=== PATIENT | female | born 1955 | race Caucasian/White ===

== ENCOUNTER 2018-04-28 11:50 | Emergency (ER) | payer SELFPAY ==
[2018-04-28 12:38] LABS: Absolute Monocytes 1.1 K/uL (0.1-1.3); Absolute Neutrophil 8.9 K/uL (1.8-8.0); Basophils % 0.9 % (0-1.3); Eosinophils % 2.3 % (0-4.4); Hematocrit 40.1 % (36.0-45.0); Lymphocytes % 16.5 % (15.3-44.8); MPV 8.4 fL (7.6-11.3); Monocytes % 8.7 % (3.3-12.3); Protime INR 0.91
[2018-04-28] MEDS ORDERED: MORPHINE 2 MG/ML SYR ONE ×2 (12:38→15:40)
[2018-04-28] MEDS ORDERED: PANTOPRAZOLE 40 MG INJ ONE (12:38)
[2018-04-28] MEDS ORDERED: ONDANSETRON 4 MG/2 ML VIAL ONE (12:38)
[2018-04-28 12:58] LABS: Potassium 3.9 mmol/L (3.5-5.1); Sodium Level 140 mmol/L (136-145)
[2018-04-28 12:59] LABS: ALT/SGPT 23 U/L (12-78); AST/SGOT 16 U/L (15-37); Alkaline Phosphatase 85 U/L (45-117); BUN Blood Urea Nitrogen 21 mg/dL (7-18); Bicarbonate 24 mmol/L (21-32); Bilirubin Direct < 0.1 mg/dL (0-0.2); Bilirubin Total 0.3 mg/dL (0.2-1.0); Glucose Level 99 mg/dL (74-106); Lipase 226 U/L (73-393); NT PRO-BNP 45 pg/mL (<125); Protein, Total 7.5 g/dL (6.4-8.2); Troponin (Emerg Dept Use Only) < 0.02 ng/mL (0.0-0.045)
--- NOTE | 2018-04-28 13:00 | RAD REPORT ---
EXAM DESCRIPTION: Lm Single View04/28/2018 12:41 pm CLINICAL HISTORY: Chest pain COMPARISON: 2017 FINDINGS: The lungs appear clear of acute infiltrate. The heart is normal size IMPRESSION: No acute abnormalities displayed
--- NOTE | 2018-04-28 14:42 | RAD REPORT ---
EXAM DESCRIPTION: CT - Abdomen Pelvis W Contrast - 04/28/2018 2:33 pm CLINICAL HISTORY: Abdominal pain with nausea. COMPARISON: none. TECHNIQUE: Computed axial tomography of the abdomen pelvis was obtained. 100 cc Isovue-300 was admin istered intravenously. Oral contrast was not requested which limits evaluation of bowel. All CT scans are performed using dose optimization technique as appropriate and may include automated exposure control or mA/KV adjustment according to patient size. FINDINGS: The liver, spleen, pancreas, adrenal and kidneys appear unremarkable. There is no evidence of diverticulitis. The appendix is normal. Hysterectomy has been performed An adnexal mass is not visualized IMPRESSION: No acute abnormality is displayed.
--- NOTE | 2018-04-28 14:43 | RAD REPORT ---
EXAM DESCRIPTION: US - Abdomen Exam Limited - 04/28/2018 2:10 pm CLINICAL HISTORY: Abdominal pain. COMPARISON: None. FINDINGS: The gallbladder is contracted. The gallbladder wall is not thickened. A gallstone is not s een. The common bile duct measures 6 millimeters IMPRESSION: Contracted gallbladder. Otherwise unremarkable exam
[2018-04-28] MEDS ORDERED: ASPIRIN 81 MG CHEWABLE TABLET ONE (15:40)
[2018-04-28] MEDS ORDERED: NICOTINE 21 MG/PAT TD ONE (15:40)
--- NOTE | 2018-04-28 17:48 | EDPHYS ---
Physician Documentation [facility] Name: Kacy Webb Age: 62 yrs Sex: Female : 1955 Arrival Date: 04/28/2018 Time: 11:51 Bed 5 Private MD: Hank Pena T ED Physician Alex Foster HPI: 04/28 12:16 This 62 yrs old Female presents to ER via Wheelchair with complaints of Chest cp Pain, Palpitations. 12:16 The patient or guardian reports chest pain that is located primarily in the epigastric cp area, mid and lower chest bilateral. 12:16 Onset: this morning. cp 12:16 The patient presents with abdominal pain in the upper abdomen. cp 12:16 The pain radiates to jaw, bilateral axilla. Associated signs and symptoms: Pertinent cp positives: nausea, palpitations, Pertinent negatives: blood in stools, constipation, diarrhea, fever, shortness of breath, vomiting. The symptoms are described as constant. 12:16 The chest pain is described as aching. cp Historical: - Allergies: 12:12 No Known Allergies; iw - Home Meds: 12:12 citalopram 10 mg tab 1 tab once daily [Active]; Toprol XL 100 mg Oral Tb24 1 tab once iw daily [Active]; Alprazolam Oral as needed [Active]; - PMHx: 12:12 Anxiety; Depression; Hypertension; iw - PSHx: 12:12 Hysterectomy; iw - Immunization history:: Adult Immunizations. - Social history:: Smoking status: Patient uses tobacco products, smokes one pack cigarettes per day. - Ebola Screening: : Patient negative for fever greater than or equal to 101.5 degrees Fahrenheit, and additional compatible Ebola Virus Disease symptoms Patient denies exposure to infectious person Patient denies travel to an Ebola-affected area in the 21 days before illness onset No symptoms or risks identified at this time. ROS: 12:19 Constitutional: Negative for body aches, chills, fever, poor PO intake. cp 12:19 Eyes: Negative for injury, pain, redness, and discharge. cp 12:19 ENT: Negative for drainage from ear(s), ear pain, sore throat, difficulty swallowing, difficulty handling secretions. 12:19 Cardiovascular: Positive for chest pain, palpitations, Negative for edema. 12:19 Respiratory: Negative for cough, shortness of breath, wheezing. 12:19 Abdomen/GI: Positive for abdominal pain, nausea, Negative for vomiting, diarrhea, constipation, black/tarry stool, rectal bleeding. 12:19 Back: Positive for pain at rest, pain with movement, of the left scapular area and right scapular area. 12:19 : Negative for urinary symptoms. 12:19 Skin: Negative for cellulitis, rash. 12:19 Neuro: Negative for altered mental status, headache, syncope, near syncope, weakness. 12:19 All other systems are negative. Exam: 12:15 ECG was reviewed by the Attending Physician. cp 12:22 Constitutional: The patient appears in no acute distress, alert, awake, cp non-diaphoretic, non-toxic, well developed, well nourished, uncomfortable. 12:22 Head/Face: Normocephalic, atraumatic. Eyes: Pupils equal round and reactive to light, cp extra-ocular motions intact. Lids and lashes normal. Conjunctiva and sclera are non-icteric and not injected. Cornea within normal limits. Periorbital areas with no swelling, redness, or edema. ENT: Nares patent. No nasal discharge, no septal abnormalities noted. Tympanic membranes are normal and external auditory canals are clear. Oropharynx with no redness, swelling, or masses, exudates, or evidence of obstruction, uvula midline. Mucous membranes moist. Neck: Trachea midline, no thyromegaly or masses palpated, and no cervical lymphadenopathy. Supple, full range of motion without nuchal rigidity, or vertebral point tenderness. No Meningismus. Chest/axilla: Normal chest wall appearance and motion. Nontender with no deformity. No lesions are appreciated. 12:22 Cardiovascular: Rate: normal, Rhythm: regular, Pulses: Pulses are 2+ in right radial artery and left radial artery. Heart sounds: murmur, not appreciated, rub, not appreciated, gallop, not appreciated, Edema: is not appreciated, JVD: is not appreciated. 12:22 Respiratory: the patient does not display signs of respiratory distress, Respirations: normal, no use of accessory muscles, no retractions, no splinting, no tachypnea, labored breathing, is not present, Breath sounds: are clear throughout, no decreased breath sounds, no stridor, no wheezing. 12:22 Abdomen/GI: Inspection: abdomen appears normal, Bowel sounds: active, all quadrants, Palpation: soft, in all quadrants, moderate abdominal tenderness, in the epigastric area, rebound tenderness, is not appreciated, voluntary guarding, is elicited in the epigastric area. 12:22 Back: pain, that is mild, of the left scapular area and right scapular area. 12:22 Musculoskeletal/extremity: Exam is negative for decreased range of motion, deformity, injury. 12:22 Skin: cellulitis, is not appreciated, no rash present. 12:22 Neuro: Orientation: to person, place \T\ time. Mentation: is normal, Cerebellar function: is grossly normal, Motor: moves all fours, strength is normal, Sensation: is normal. Vital Signs: 12:12 BP 189 / 93; Pulse 96; Resp 18 S; Temp 98.3; Pulse Ox 100% on R/A; Weight 58.97 kg; iw Height 5 ft. 2 in. (157.48 cm); Pain 7/10; 12:46 BP 160 / 82; Pulse 85; Resp 22; Pulse Ox 96% on R/A; Pain 3/10; ph 14:11 BP 136 / 98; Pulse 83; Resp 18; Pulse Ox 97% on R/A; ph 15:37 BP 154 / 92; Pulse 78; Resp 20; Pulse Ox 98% on R/A; ph 17:00 BP 141 / 92; Pulse 78; Resp 18; Pulse Ox 99% on R/A; ph 17:54 BP 157 / 83; Pulse 76; Resp 18; Pulse Ox 100% on R/A; hj 12:12 Body Mass Index 23.78 (58.97 kg, 157.48 cm) iw MDM: 12:09 Patient medically screened. cp 15:00 Data reviewed: vital signs, nurses notes, lab test result(s), EKG, radiologic studies, cp CT scan, plain films, ultrasound. 15:00 Test interpretation: by ED physician or midlevel provider: ECG, plain radiologic cp studies. 15:15 Physician consultation: Neelima Downey MD was called at 15:05, was contacted at 15:05, cp regarding admission, to the telemetry unit. patient's condition, and will see patient in ED, shortly. 15:35 ED course: VSS. Patient evaluated by DR Zangana in ED and felt stable for discharge cp with outpatient f/u after repeat troponin and if troponin is negative. Does not believe symptoms are cardiac related. 17:45 The patient was given aspirin in the Emergency Department. cp 17:45 Counseling: I had a detailed discussion with the patient and/or guardian regarding: the cp historical points, exam findings, and any diagnostic results supporting the discharge/admit diagnosis, the presence of at least one elevated blood pressure reading (>120/80) during this emergency department visit, lab results, radiology results, the need for outpatient follow up, a reflow operator, to return to the emergency department if symptoms worsen or persist or if there are any questions or concerns that arise at home, smoking cessation. 04/28 12:12 Order name: Basic Metabolic Panel; Complete Time: 13:11 04/28 12:12 Order name: CBC with Diff; Complete Time: 12:59 cp 04/28 12:59 Interpretation: Normal except: WBC 12.4; MCV 102.9; PLT 427; NEUT A 8.9. cp 04/28 12:12 Order name: LFT's; Complete Time: 13:11 cp 04/28 12:12 Order name: Magnesium; Complete Time: 13:11 cp 04/28 12:12 Order name: NT PRO-BNP; Complete Time: 13:11 cp 04/28 12:12 Order name: PT-INR; Complete Time: 12:59 cp 04/28 12:12 Order name: Troponin (emerg Dept Use Only); Complete Time: 13:11 cp 04/28 12:12 Order name: XRAY Chest (1 view); Complete Time: 13:11 cp 04/28 12:12 Order name: Lipase; Complete Time: 13:11 cp 04/28 13:12 Order name: US Abdomen Limited: RUQ/epigastric pain; Complete Time: 14:48 cp 04/28 14:09 Order name: CT Abd/Pelvis - W/Contrast: no oral contrast; Complete Time: 14:48 cp 04/28 16:17 Order name: Troponin I cp 04/28 12:12 Order name: EKG; Complete Time: 12:13 cp 04/28 12:12 Order name: Cardiac monitoring; Complete Time: 12:14 cp 04/28 12:12 Order name: EKG - Nurse/Tech; Complete Time: 12:14 cp 04/28 12:12 Order name: IV Saline Lock; Complete Time: 12:24 cp 04/28 12:12 Order name: Labs collected and sent; Complete Time: 12:24 cp 04/28 12:12 Order name: O2 Per Protocol; Complete Time: 12:14 cp 04/28 12:12 Order name: O2 Sat Monitoring; Complete Time: 12:14 cp 04/28 15:05 Order name: Diet Regular; Complete Time: 15:05 cp EC:15 Rate is 86 beats/min. Rhythm is regular. NH interval is normal. QRS interval is normal. cp QT interval is normal. T waves are Inverted in lead V2. Interpreted by me. Reviewed by me. Administered Medications: 12:35 Drug: Zofran 4 mg Route: IVP; Site: right antecubital; ph 12:48 Follow up: Response: No adverse reaction; Nausea is decreased ph 12:35 Drug: ProTONIX 40 mg Route: IVP; Site: left antecubital; ph 12:49 Follow up: Response: No adverse reaction ph 12:37 Drug: morphine 2 mg Route: IVP; Site: right antecubital; ph 12:49 Follow up: Response: No adverse reaction; Pain is decreased ph 16:05 Not Given (Other Intervention Used; Pt took 2 at home, 2 administered in ED): Aspirin ph Chewable Tablet 324 mg PO once; 81 mg tablets x 4 16:05 Drug: Nicotine 21 mg/24 hr 1 patches {Note: R upper arm.} Route: Transdermal; Site: ph affected area; 16:06 Drug: morphine 2 mg Route: IVP; Site: right antecubital; ph 17:55 Follow up: Response: No adverse reaction hj 16:06 Drug: Aspirin Chewable Tablet 162 mg Route: PO; ph 17:55 Follow up: Response: No adverse reaction; Pain is decreased hj Disposition: 18:55 Co-signature as Attending Physician, Alex Foster MD. Disposition: 04/28/18 17:48 Discharged to Home. Impression: Chest pain, unspecified, Epigastric pain, Palpitations. - Condition is Stable. - Discharge Instructions: Nonspecific Chest Pain, Palpitations, Aspirin and Your Heart. - Prescriptions for Celexa 20 mg Oral Tablet - take 0.5 tablet by ORAL route once daily; 20 tablet. Protonix 40 mg Oral Tablet - take 1 tablet by ORAL route once daily; 30 tablet. - Medication Reconciliation Form, Thank You Letter, Antibiotic Education, Prescription Opioid Use form. - Follow up: Florentino Hidalgo MD; When: 2 - 3 days; Reason: chest pain. - Problem is new. - Symptoms have improved. Signatures: Dispatcher [employer] EDCharlotte Murillo RN RN iw Reba De Dios RN RN ph Akhil Crook RN RN hj Beka Ruiz, PA PA cp Alex Foster MD MD Corrections: (The following items were deleted from the chart) 12:59 12:59 Normal except: WBC 12.4; MCV 102.9; PLT 427. cp cp 17:48 17:48 04/28/2018 17:48 Discharged to Home. Impression: Chest pain, unspecified; cp Epigastric pain. Condition is Stable. Prescriptions for Celexa 20 mg Oral Tablet - take 0.5 tablet by ORAL route once daily; 20 tablet. and Forms are Medication Reconciliation Form, Thank You Letter, Antibiotic Education, Prescription Opioid Use. Follow up: Florentino Hidalgo; When: 2 - 3 days; Reason: chest pain. Problem is new. Symptoms have improved. cp 17:57 17:48 04/28/2018 17:48 Discharged to Home. Impression: Chest pain, unspecified; hj Epigastric pain; Palpitations. Condition is Stable. Discharge Instructions: Nonspecific Chest Pain, Palpitations, Aspirin and Your Heart. Prescriptions for Celexa 20 mg Oral Tablet - take 0.5 tablet by ORAL route once daily; 20 tablet, Protonix 40 mg Oral Tablet - take 1 tablet by ORAL route once daily; 30 tablet. and Forms are Medication Reconciliation Form, Thank You Letter, Antibiotic Education, Prescription Opioid Use. Follow up: Florentino Hidalgo; When: 2 - 3 days; Reason: chest pain. Problem is new. Symptoms have improved. cp
--- NOTE | 2018-04-28 17:48 | ER ---
Nurse's Notes [facility] Name: Kacy Webb Age: 62 yrs Sex: Female : 1955 Arrival Date: 04/28/2018 Time: 11:51 Bed 5 Private MD: Hank Pena T Diagnosis: Chest pain, unspecified;Epigastric pain;Palpitations Presentation: 04/28 12:10 Presenting complaint: Patient states: pain across chest since this morning, also has iw had palpitations for a few days, pain radiates to right jaw, into amina armpits, also c/o upper abd pain. Transition of care: patient was not received from another setting of care. Onset of symptoms was April 28, 2018. Risk Assessment: Do you want to hurt yourself or someone else? Patient reports no desire to harm self or others. Initial Sepsis Screen: Does the patient meet any 2 criteria? No. Patient's initial sepsis screen is negative. Does the patient have a suspected source of infection? No. Patient's initial sepsis screen is negative. Care prior to arrival: None. 12:10 Method Of Arrival: Wheelchair iw 12:10 Acuity: ITA 2 iw Historical: - Allergies: 12:12 No Known Allergies; iw - Home Meds: 12:12 citalopram 10 mg tab 1 tab once daily [Active]; Toprol XL 100 mg Oral Tb24 1 tab once iw daily [Active]; Alprazolam Oral as needed [Active]; - PMHx: 12:12 Anxiety; Depression; Hypertension; iw - PSHx: 12:12 Hysterectomy; iw - Immunization history:: Adult Immunizations. - Social history:: Smoking status: Patient uses tobacco products, smokes one pack cigarettes per day. - Ebola Screening: : Patient negative for fever greater than or equal to 101.5 degrees Fahrenheit, and additional compatible Ebola Virus Disease symptoms Patient denies exposure to infectious person Patient denies travel to an Ebola-affected area in the 21 days before illness onset No symptoms or risks identified at this time. Screenin:40 Abuse screen: Denies threats or abuse. Denies injuries from another. Nutritional ph screening: No deficits noted. Tuberculosis screening: No symptoms or risk factors identified. Fall Risk None identified. Assessment: 12:30 General: Appears in no apparent distress. comfortable, slender, well groomed, Behavior ph is calm, cooperative, appropriate for age, Denies fever, feeling ill. Pain: Complains of pain in anterior aspect of left upper chest and left breast Pain radiates to amina axilla, amina jaw, amina rib area,upper abdomen and back Pain currently is 7 out of 10 on a pain scale. Pain began 1 day ago. Neuro: Level of Consciousness is awake, alert, obeys commands, Oriented to person, place, time, situation, Reports headache in left frontal area. Cardiovascular: Reports chest pain, nausea, palpitations, shortness of breath, Denies syncope, vomiting, Capillary refill < 3 seconds in bilateral fingers Patient's skin is warm and dry. Rhythm is sinus rhythm Chest pain is located in left chest wall radiates to bilateral arm(s) back jaw(s). Respiratory: Airway is patent Respiratory effort is even, unlabored. GI: Reports nausea, Patient currently denies abdominal pain, diarrhea, vomiting. Derm: Skin is intact, is healthy with good turgor, Skin is pink, warm \\T\\ dry. Musculoskeletal: Circulation, motion, and sensation intact. Range of motion: intact in all extremities. 12:46 Reassessment: Patient appears in no apparent distress at this time. Patient and/or ph family updated on plan of care and expected duration. Pain level reassessed. Patient is alert, oriented x 3, equal unlabored respirations, skin warm/dry/pink. Pt reports that nausea and pain have improved, states, " I only have pain in my back now." Awaiting lab and radiology results, VSS Patient states feeling better. 14:11 Reassessment: Patient appears in no apparent distress at this time. Patient and/or ph family updated on plan of care and expected duration. Pain level reassessed. Patient is alert, oriented x 3, equal unlabored respirations, skin warm/dry/pink. 15:20 Reassessment: Patient appears in no apparent distress at this time. Patient and/or ph family updated on plan of care and expected duration. Pain level reassessed. Patient is alert, oriented x 3, equal unlabored respirations, skin warm/dry/pink. Pt c/o pain in back and amina rib area, states, " I am feeling the palpations again." EKG repeated and ERP notified of pt's pain, see MAR. 15:39 Reassessment: Patient appears in no apparent distress at this time. Patient is alert, ph oriented x 3, equal unlabored respirations, skin warm/dry/pink. Hospitalist at bedside to exam pt. 17:19 Reassessment: Patient appears in no apparent distress at this time. Patient and/or ph family updated on plan of care and expected duration. Pain level reassessed. Patient is alert, oriented x 3, equal unlabored respirations, skin warm/dry/pink. Pt reports that pain has improved, awaiting results of repeat cardiac enzymes, VSS. Vital Signs: 12:12 BP 189 / 93; Pulse 96; Resp 18 S; Temp 98.3; Pulse Ox 100% on R/A; Weight 58.97 kg; iw Height 5 ft. 2 in. (157.48 cm); Pain 7/10; 12:46 BP 160 / 82; Pulse 85; Resp 22; Pulse Ox 96% on R/A; Pain 3/10; ph 14:11 BP 136 / 98; Pulse 83; Resp 18; Pulse Ox 97% on R/A; ph 15:37 BP 154 / 92; Pulse 78; Resp 20; Pulse Ox 98% on R/A; ph 17:00 BP 141 / 92; Pulse 78; Resp 18; Pulse Ox 99% on R/A; ph 17:54 BP 157 / 83; Pulse 76; Resp 18; Pulse Ox 100% on R/A; hj 12:12 Body Mass Index 23.78 (58.97 kg, 157.48 cm) iw ED Course: 11:51 Patient arrived in ED. mr 11:51 Hank Pena MD is Private Physician. mr 11:55 Reba De Dios, ALTHEA is Primary Nurse. ph 12:04 Beka Ruiz PA is PHCP. cp 12:04 Alex Foster MD is Attending Physician. cp 12:11 Triage completed. iw 12:12 Arm band placed on. iw 12:24 Inserted saline lock: 20 gauge in right antecubital area, using aseptic technique. ph Blood collected. Patient maintains SpO2 saturation greater than 95% on room air. 12:41 XRAY Chest (1 view) In Process Unspecified. EDMS 12:47 Patient has correct armband on for positive identification. Placed in gown. Bed in low ph position. Call light in reach. Side rails up X2. monitoring and evaluation advisor on. Pulse ox on. NIBP on. Door closed. Noise minimized. Lights dimmed. Warm blanket given. 14:11 US Abdomen Limited: RUQ/epigastric pain In Process Unspecified. EDMS 14:32 CT completed. Patient tolerated procedure well. Patient moved back from CT. kw1 14:34 CT Abd/Pelvis - W/Contrast: no oral contrast In Process Unspecified. EDMS 17:47 Florentino Hidalgo MD is Referral Physician. cp 17:54 No provider procedures requiring assistance completed. IV discontinued, intact, hj bleeding controlled, No redness/swelling at site. Pressure dressing applied. Administered Medications: 12:35 Drug: Zofran 4 mg Route: IVP; Site: right antecubital; ph 12:48 Follow up: Response: No adverse reaction; Nausea is decreased ph 12:35 Drug: ProTONIX 40 mg Route: IVP; Site: left antecubital; ph 12:49 Follow up: Response: No adverse reaction ph 12:37 Drug: morphine 2 mg Route: IVP; Site: right antecubital; ph 12:49 Follow up: Response: No adverse reaction; Pain is decreased ph 16:05 Not Given (Other Intervention Used; Pt took 2 at home, 2 administered in ED): Aspirin ph Chewable Tablet 324 mg PO once; 81 mg tablets x 4 16:05 Drug: Nicotine 21 mg/24 hr 1 patches {Note: R upper arm.} Route: Transdermal; Site: ph affected area; 16:06 Drug: morphine 2 mg Route: IVP; Site: right antecubital; ph 17:55 Follow up: Response: No adverse reaction hj 16:06 Drug: Aspirin Chewable Tablet 162 mg Route: PO; ph 17:55 Follow up: Response: No adverse reaction; Pain is decreased hj Outcome: 17:48 Discharge ordered by MD. cp 17:54 Discharged to home ambulatory, with family. hj 17:54 Condition: stable 17:54 Discharge instructions given to patient, family, Instructed on discharge instructions, follow up and referral plans. medication usage, Demonstrated understanding of instructions, follow-up care, medications, Prescriptions given X 2. 17:57 Patient left the ED. Signatures: Dispatcher [employer] [facility] GasparBarb Irene, RN RN Reba De Dios RN RN ph Joaquin, Henry, RN RN hj Page, Corey, PA PA cp Wilhelm, Yanique kw1 Corrections: (The following items were deleted from the chart) 12:13 12:12 BP 178 / 93; Pulse 96bpm; Resp 18bpm; Spontaneous; Pulse Ox 100% RA; Temp 98.3F; iw 58.97 kg; Height 5 ft. 2 in.; BMI: 23.7; Pain 7/10; iw
--- NOTE | 2018-04-29 07:39 | EKG ---
Test Date: 2018-04-28 Test Time: 12:05:33 Business Applications Manager: SHAUN MEASUREMENT RESULTS: Intervals: Rate: 89 NM: 174 QRSD: 86 QT: 378 QTc: 459 [place]: P: 72 NM: 174 QRS: 19 T: 54 INTERPRETIVE STATEMENTS: Normal sinus rhythm Possible Left atrial enlargement Borderline ECG Compared to ECG 05/09/2016 19:24:35 No significant changes Electronically Signed On 04-29-18 07:37:41 AUTOMOTIVE TIRE TECHNICIAN by Eulogio David
--- NOTE | 2018-04-29 08:52 | EKG ---
Test Date: 2018-04-28 Test Time: 15:24:34 Magnetic Resonance Technologist: ABHILASH MEASUREMENT RESULTS: Intervals: Rate: 73 NC: 184 QRSD: 78 QT: 402 QTc: 442 [place]: P: 61 NC: 184 QRS: 10 T: 40 INTERPRETIVE STATEMENTS: Normal sinus rhythm Normal ECG Compared to ECG 04/28/2018 12:05:33 No significant changes Electronically Signed On 04-29-18 08:51:59 DIRECTOR OF GUIDANCE IN [employer] by Florentino Hidalgo
== END 2018-04-28 17:57 | disposition home or self-care (01) ==
LOC: ER 11:50
DX: R00.2 Palpitations (principal); R10.13 Epigastric pain; I10 Essential (primary) hypertension; F32.9 Major depressive disorder, single episode, unspecified; F41.9 Anxiety disorder, unspecified
CPT/HCPCS: 36415; 71045; 74177; 76705; 80048; 80076; 83690; 83735; 83880; 84484; 85025; 85610; 93005; 99285; C9113; J2270; J2405; Q9967

== ENCOUNTER 2019-10-16 17:47 | Emergency (ER) | payer SELFPAY ==
[2019-10-16] MEDS ORDERED: EPINEPHrine 1 MG/10 ML SYR IV ONE (17:48)
--- NOTE | 2019-10-16 17:58 | EDPHYS ---
Physician Documentation [facility] Name: Kacy Webb Age: 64 yrs Sex: Female : 1955 Arrival Date: 10/16/2019 Time: 17:53 Bed 3 Private MD: ED Physician Samson Nicolas HPI: 10/15 17:57 This 64 yrs old Female presents to ER via Unassigned with complaints of CPR. kdr 17:57 Preceding the arrest, the patient The patient was last seen well around 10-:00 AM kdr today. According to EMS/Police found her asleep on the table. He left the house to get a friend to help and when they returned, she was still unresponsive. EMS was called at that time and police arrived and started CPR. When EMS arrived about 5 minutes after toned out, the patient was on the floor with ecchymosis around her mouth and hands. Her initial rhythm was asystole. An IO and airway was established and three rounds of EPI were given prior to arrival in the ED. At no time, did the patient show any signs of life and was in asystole the entire time. On arrival to the ED, thumper in place and the patients' pupils were fixed and dilated. She continued in asystole and was pronounced at 17:45. Son was present shortly after and he was informed. The arrest occurred at home. Pre-hospital course: The arrest was not witnessed by others. Bystanders at the scene performed CPR. EMS care prior to arrival: initiation of ACLS, peripheral IV, was successfully placed. intubation was successfully performed, orally, using a 6 ET tube. oxygen, 100% by ET tube. backboard, EMS on scene time was Time elapsed prior to ACLS is unknown. ACLS has been in progress for 30 minutes. 17:57 It is unknown whether or not the patient has had similar symptoms in the past. It is kdr unknown whether or not the patient has recently seen a physician. Historical: - Allergies: 18:08 No Known Drug Allergies; sv - PMHx: 18:08 Anxiety; Depression; Hypertension; sv - PSHx: 18:08 Hysterectomy; sv ROS: 17:57 Constitutional: Unobtainable kdr 17:57 Unable to obtain ROS due to comatose state, patient is on ventilator. Exam: 17:57 Constitutional: This is a well developed, well nourished patient who is awake, alert, kdr and in no acute distress. Head/Face: Normocephalic, atraumatic. 17:57 Eyes: Pupils: are fixed and dilated. Vital Signs: 18:08 Temp 94.2(R); sv MDM: 17:57 Patient medically screened. kdr 17:57 Data reviewed: vital signs, nurses notes. Counseling: I had a detailed discussion with kdr the patient and/or guardian regarding: the historical points, exam findings, and any diagnostic results supporting the discharge/admit diagnosis. Administered Medications: No medications were administered Disposition: 17:55 . kdr Disposition: Patient pronounced on 10/16/19 17:45 by Samson Nicolas. Impression: Cardiac arrest. - Released to In Classroom Tutor. Signatures: Mare Multani RN RN Samson Nicolas MD MD [facility] Bernadette Botello mw2 Corrections: (The following items were deleted from the chart) 21:05 17:57 10/16/2019 17:57 Patient pronounced on 10/16/2019 at 17:45 by Samson Nicolas. mw2 Impression: Cardiac arrest. Released to In Classroom Tutor. kdr
--- NOTE | 2019-10-16 21:05 | ER ---
Nurse's Notes [facility] Name: Kacy eWbb Age: 64 yrs Sex: Female : 1955 Arrival Date: 10/16/2019 Time: 17:53 Bed 3 Private MD: Diagnosis: Cardiac arrest Presentation: 10/15 17:43 Chief complaint: EMS states: toned out at 1711 by family, stated pt was found on the sv ground by the refrigerator, downtime was 1-5 hours. Spouse stated that today she was sitting at the dinner table with a towel around her head, not feeling well. Spouse had left and found her the way she was. On EMS arrival, CPR was started, noted no rigor, her hands and face were purple and she had a warm neck. Pt was asystole en route, 20G L AC and IO to Left leg started, NS and Epinephrine x 3 given last at 1738. Intubated with 6.0 tube, 20 at teeth. Care prior to arrival: Assisted ventilation, Oral intubation, CPR manually via thumper performed by EMS and is still in progress Placed on backboard. IV initiated. 20 GA, in the left antecubital area, IO left leg Oxygen administered. via AMBU bag. Compressions began prior to arrival. 17:43 Method Of Arrival: EMS: [facility] sv 17:43 Acuity: ITA 1 sv 18:10 Coronavirus screen: At this time, unable to obtain information related to travel sv outside the [place] Ebola Screen: Unable to complete the Ebola screening because:. Onset of symptoms was October 16, 2019. 18:10 Risk Assessment: Do you want to hurt yourself or someone else? Unable to obtain. sv Historical: - Allergies: 18:08 No Known Drug Allergies; sv - PMHx: 18:08 Anxiety; Depression; Hypertension; sv - PSHx: 18:08 Hysterectomy; sv Screenin:08 Abuse screen: Denies threats or abuse. Denies injuries from another. Nutritional sv screening: No deficits noted. Tuberculosis screening: No symptoms or risk factors identified. Assessment: 17:43 CPR assessment: unresponsive, no respiratory effort, intubated, Ambu ventilation, sv cyanotic, pale, dependent lividity noted. Cardiac rhythm is asystole. General: Behavior is unresponsive. Neuro: Level of Consciousness is unresponsive. Respiratory: Airway via oral intubation Respiratory effort is none. Derm: Skin is mottled. 17:50 Reassessment: [address] [place] [employer] officers at the bedside. sv 18:14 Reassessment: [facility] called by myself, pt is a candidate for tissue donation. Case sv #[id number]. Vital Signs: 18:08 Temp 94.2(R); sv ED Course: 17:43 Maintain EMS IV. Gauge \T\ site: 20G L AC, IO left leg. sv 17:53 Patient arrived in ED. ds1 17:55 Samson Nicolas MD is Attending Physician. kdr 17:55 Samson Nicolas MD is Pronouncing Provider. kdr 18:02 Mare Multani RN is Primary Nurse. sv 18:07 Triage completed. sv 18:08 Patient has correct armband on for positive identification. sv 18:10 Arm band placed on. sv 19:22 Report given to Srikanth RN and Shade RN. sv 19:27 Primary Nurse role handed off by Mare Multani RN Administered Medications: No medications were administered Outcome: 17:45 Patient : Time of 17:45 Pronounced by Samson Nicolas MD 17:45 Condition: 21:05 Patient left the ED. mw2 Signatures: Mare Multani RN RN Samson Nicolas MD MD [facility] Graciela Del Toro ds1 Bernadette Botello mw2
[2019-10-16 21:09] VITALS: TEMP 94.2
== END 2019-10-16 21:05 ==
LOC: ER 17:47
DX: I46.9 Cardiac arrest, cause unspecified (principal); I10 Essential (primary) hypertension
CPT/HCPCS: 92950; 99285; J0171